=== PATIENT | male | born 1990 | race American Indian/Alaskan Native ===

== ENCOUNTER 2018-06-02 10:14 | Emergency (ER) | payer MEDICAID ==
--- NOTE | 2018-06-02 13:26 | Emergency Department Report ---
ED General Adult HPI - General Chief complaint: Medical Clearance Stated complaint: DIALYSIS Time Seen by Provider: 06/02/18 12:52 Source: patient Mode of arrival: Ambulatory Limitations: No Limitations - History of Present Illness Initial comments: Mr West is a 28 year-old man with ESRD who presents for his regular dialysis. He has been kicked out of [facility] for non-compliance. Has been floating around different ERs in order to get his dialysis. Was dialyzed at [facility] on Thursday. Has been doing well. Still makes urine. No chest pain, no shortness of breath, no back pain, no palpitations, no fevers. Has been unable to find a new big data [employer] lead. - Related Data Allergies Allergy/AdvReac Type Severity Reaction Status Date / Time No Known Allergies Allergy Unverified 06/02/18 11:10 ED Review of Systems ROS: Stated complaint: DIALYSIS Other details as noted in HPI Comment: All other systems reviewed and negative ED Past Medical Hx - Past Medical History Previous Medical History?: Yes Hx Renal Disease: Yes (Bartter Disease) - Surgical History Past Surgical History?: Yes Additional Surgical History: L. forearm AV graft, vas cath R. chest wall - Social History Smoking Status: Never Smoker ED Physical Exam - General Limitations: No Limitations General appearance: alert, in no apparent distress - Head Head exam: Present: atraumatic, normocephalic - Eye Eye exam: Present: normal appearance, EOMI - ENT ENT exam: Present: mucous membranes moist - Neck Neck exam: Present: normal inspection. Absent: tenderness, meningismus - Respiratory Respiratory exam: Present: normal lung sounds bilaterally. Absent: respiratory distress, wheezes - Cardiovascular Cardiovascular Exam: Present: regular rate, normal rhythm. Absent: systolic murmur, diastolic murmur, rubs, gallop - GI/Abdominal GI/Abdominal exam: Present: soft. Absent: distended, tenderness - Rectal Rectal exam: Present: deferred - Extremities Exam Extremities exam: Present: normal inspection, other (left forearm AVF with palpable thrill). Absent: tenderness - Back Exam Back exam: Present: normal inspection. Absent: tenderness - Neurological Exam Neurological exam: Present: alert, oriented X3 - Psychiatric Psychiatric exam: Present: normal affect, normal mood - Skin Skin exam: Present: warm, dry, intact, normal color. Absent: rash ED Course Vital Signs 07/18/18 11:06 Temperature 98.3 F Pulse Rate 79 Respiratory 16 Rate Blood Pressure 170/98 O2 Sat by Pulse 100 Oximetry ED Medical Decision Making - Lab Data Result diagrams: 06/02/18 14:21 06/02/18 14:21 Lab Results 06/02/18 06/02/18 Range/Units 14:21 14:21 WBC 4.3 L (4.5-11.0) K/mm3 RBC 4.18 (3.65-5.03) M/mm3 Hgb 10.6 L (11.8-15.2) gm/dl Hct 34.1 L (35.5-45.6) % MCV 82 L (84-94) fl MCH 25 L (28-32) pg MCHC 31 L (32-34) % RDW 16.5 H (13.2-15.2) % Plt Count 181 (140-440) K/mm3 Sodium 140 (137-145) mmol/L Potassium 4.1 (3.6-5.0) mmol/L Chloride 94.6 L (98-107) mmol/L Carbon Dioxide 23 (22-30) mmol/L Anion Gap 27 mmol/L BUN 66 H (9-20) mg/dL Creatinine 17.1 H (0.8-1.5) mg/dL Estimated GFR 4 ml/min BUN/Creatinine Ratio 4 % Glucose 87 (75-100) mg/dL Calcium 8.8 (8.4-10.2) mg/dL - Medical Decision Making mr west is a 28 year-old man who presents for routine dialysis. Was [facility] dialysis, but was kicked out of [facility] for non-compliance. Last dialyzed on Thursday at [facility]. Does not meet emergent dialysis standard. elevated BUN and Cr, but normal K, bicarb. elevated anion gap. no dyspnea. not volume overload. Spoke with dr. dotson, nephrology, who recommends referral to a new center. Had case management meet with him to help with referrals. Until he is able to get into new center, recommend returning to ED for evaluation. Given return precautions. Critical care attestation.: If time is entered above; I have spent that time in minutes in the direct care of this critically ill patient, excluding procedure time. ED Disposition Clinical Impression: ESRD (end stage renal disease) on dialysis Disposition: TO HOME OR SELFCARE Is pt being admited?: No Does the pt Need Aspirin: No Condition: Stable Instructions: Chronic Kidney Disease (ED), Hemodialysis (ED) Referrals: PRIMARY CARE,MD [Primary Care Provider] - 3-5 Days
[2018-06-02 14:36] LABS: Hematocrit 34.1 % (35.5-45.6); Hemoglobin 10.6 gm/dl (11.8-15.2); Mean Corpuscular HGB Conc 31 % (32-34); Mean Corpuscular Hemoglobin 25 pg (28-32); Mean Corpuscular Volume 82 fl (84-94); Platelet Count 181 K/mm3 (140-440); Red Blood Count 4.18 M/mm3 (3.65-5.03); Red Cell Distribution Width 16.5 % (13.2-15.2)
[2018-06-02 14:56] LABS: Calcium 8.8 mg/dL (8.4-10.2)
[2018-06-02 16:05] VITALS: BP 164/92
== END 2018-06-02 16:03 | disposition home or self-care (01) ==
LOC: ED 10:14
DX: N18.6 End stage renal disease (principal); Z99.2 Dependence on renal dialysis
CPT/HCPCS: 36415; 80048; 85027; 99283

== ENCOUNTER 2018-06-05 11:04 | Inpatient (IN) | payer MEDICAID ==
--- NOTE | 2018-06-05 12:14 | Emergency Department Report ---
Blank Doc - Documentation Documentation: Patient is 28 years old male history of end stage renal disease on hemodialysis. Patient is very noncompliant to his his dialysis. Patient does not have any seo coordinator or a dialysis Center he was recently kicked off the [facility] dialysis Center. Patient stated that last time he had dialysis was Thursday approximately 6 days ago. Patient is complaining of slight shortness of breath. He denied any nausea or vomiting. Blood pressure is slightly elevated. EKG, labs and x-ray ordered patient needed to be managed into our main ED.
[2018-06-05 13:19] LABS: Basophils % (Auto) 0.5 % (0.0-1.8); Eosinophils # (Auto) 0.1 K/mm3 (0.0-0.4); Eosinophils % (Auto) 2.9 % (0.0-4.3); Hematocrit 31.8 % (35.5-45.6); Lymphocytes # (Auto) 1.6 K/mm3 (1.2-5.4); Lymphocytes % (Auto) 35.4 % (13.4-35.0); Mean Corpuscular HGB Conc 32 % (32-34); Mean Corpuscular Volume 80 fl (84-94); Monocytes # (Auto) 0.3 K/mm3 (0.0-0.8); Monocytes % (Auto) 5.6 % (0.0-7.3); Platelet Count 169 K/mm3 (140-440); Red Blood Count 3.95 M/mm3 (3.65-5.03); Red Cell Distribution Width 16.4 % (13.2-15.2)
[2018-06-05 13:20] LABS: Mean Corpuscular Hemoglobin 25 pg (28-32)
--- NOTE | 2018-06-05 13:26 | XRay Report ---
FINAL REPORT EXAM: XR CHEST ROUTINE 2V HISTORY: SOB COMPARISON: None. TECHNIQUE: Frontal and lateral views of the chest. FINDINGS: The cardiomediastinal silhouette is normal in appearance. The lungs are clear without focal consolidation. There is no pleural effusion or pneumothorax. There is no acute soft tissue or osseous abnormality. IMPRESSION: No acute cardiopulmonary disease.
--- NOTE | 2018-06-05 13:54 | Emergency Department Report ---
ED General Adult HPI - General Chief complaint: Medical Clearance Stated complaint: DIALYSIS Time Seen by Provider: 06/05/18 11:57 Source: patient Mode of arrival: Ambulatory Limitations: No Limitations - History of Present Illness Initial comments: Patient is 28 years old male history of end stage renal disease on hemodialysis. Patient is very noncompliant to his his dialysis. Patient does not have any therapeutic specialist or a dialysis Center he was recently kicked off the [facility] dialysis Center. Patient stated that last time he had dialysis was Thursday approximately 6 days ago. Patient is complaining of slight shortness of breath. He denied any nausea or vomiting. Blood pressure is slightly elevated. - Related Data Allergies Allergy/AdvReac Type Severity Reaction Status Date / Time No Known Allergies Allergy Verified 06/05/18 11:32 ED Review of Systems ROS: Stated complaint: DIALYSIS Other details as noted in HPI Comment: All other systems reviewed and negative Constitutional: denies: chills, fever Respiratory: shortness of breath. denies: wheezing Cardiovascular: denies: chest pain Gastrointestinal: denies: abdominal pain, nausea, vomiting Neurological: denies: headache, weakness, numbness, paresthesias, confusion, abnormal gait ED Past Medical Hx - Past Medical History Hx Hypertension: Yes Hx Renal Disease: Yes (Bartter Disease) - Surgical History Additional Surgical History: L. forearm AV graft, vas cath R. chest wall - Social History Smoking Status: Never Smoker Substance Use Type: None ED Physical Exam - General Limitations: No Limitations General appearance: alert, in no apparent distress - Head Head exam: Present: atraumatic, normocephalic, normal inspection - ENT ENT exam: Present: normal exam, normal orophraynx, mucous membranes moist - Neck Neck exam: Present: normal inspection, full ROM. Absent: tenderness, meningismus, lymphadenopathy, thyromegaly - Respiratory Respiratory exam: Present: normal lung sounds bilaterally. Absent: respiratory distress, wheezes, rales, rhonchi, accessory muscle use, decreased breath sounds , prolonged expiratory - Cardiovascular Cardiovascular Exam: Present: regular rate, normal rhythm, normal heart sounds - GI/Abdominal GI/Abdominal exam: Present: soft, normal bowel sounds. Absent: distended, tenderness, guarding, rebound, rigid, organomegaly, mass, bruit, pulsatile mass , hernia - Extremities Exam Extremities exam: Present: normal inspection, full ROM, normal capillary refill. Absent: pedal edema, calf tenderness - Neurological Exam Neurological exam: Present: alert, oriented X3, CN II-XII intact, normal gait, reflexes normal - Skin Skin exam: Present: warm, intact, normal color ED Course Vital Signs 06/05/18 11:07 Temperature 98.3 F Pulse Rate 85 Respiratory 20 Rate Blood Pressure 173/100 O2 Sat by Pulse 100 Oximetry - Reevaluation(s) Reevaluation #1: 06/05/18 14:09 * I discussed the patient is Dr. Allison from nephrology, he stated that he will put dialysis orders ED Medical Decision Making - Lab Data Result diagrams: 06/05/18 12:29 06/05/18 12:29 - Radiology Data Radiology results: report reviewed Referring Physician: JUAN CARLOS FINN Patient Name: AIDAN CUEVAS Date of : 1990 Sex: Male Report Date: 2018-06-05 Report Status: [place] [address] XRay Report Signed Patient: AIDAN CUEVAS MR#: [id number] : 1990 Acct:[id number] Age/Sex: 28 / M ADM Date: 06/05/18 Loc: ED Attending Dr: Ordering Physician: JUAN CARLOS FINN Date of Service: 06/05/18 Procedure(s): XR chest routine 2V Accession Number(s): [id number] cc: JUAN CARLOS FINN Fluoro Time In Minutes: FINAL REPORT EXAM: XR CHEST ROUTINE 2V HISTORY: SOB COMPARISON: None. TECHNIQUE: Frontal and lateral views of the chest. FINDINGS: The cardiomediastinal silhouette is normal in appearance. The lungs are clear without focal consolidation. There is no pleural effusion or pneumothorax. There is no acute soft tissue or osseous abnormality. IMPRESSION: No acute cardiopulmonary disease. Transcribed By: ANAMARIA Dictated By: NURIS EUGENE MD Electronically Authenticated By: NURIS EUGENE MD Signed Date/Time: 06/05/18 132 DD/ 132 TD/TT: 06/05/18 132 Critical care attestation.: If time is entered above; I have spent that time in minutes in the direct care of this critically ill patient, excluding procedure time. ED Disposition Clinical Impression: ESRD (end stage renal disease) on dialysis, Volume overload Disposition: 09 OP ADMIT IP TO THIS HOSP Is pt being admited?: Yes Condition: Stable Referrals: PRIMARY CARE, [Primary Care Provider] - 3-5 Days
[2018-06-05] MEDS ORDERED: NACL 0.9% 100 ML IV PRN (14:08)
[2018-06-05 15:40] VITALS: BP 172/101
--- NOTE | 2018-06-05 16:32 | Event Note ---
Date: 06/05/18 Patient left AMA, unable to see him.
--- NOTE | 2018-06-05 23:16 | Event Note ---
Date: 06/05/18 Left AMA Dictated H/p---in reports ESRD on HD Missed HD Volume overload
== END 2018-06-05 15:40 | disposition left against medical advice (07) | DRG 640 ==
LOC: ED 11:04 → 3A 15:18
PROVIDERS: ADMIT Internal Medicine; ATTEND Internal Medicine
DX: E87.70 Fluid overload, unspecified (principal); N18.6 End stage renal disease; I12.0 Hypertensive chronic kidney disease with stage 5 chronic kidney disease or end stage renal disease; Z99.2 Dependence on renal dialysis; Z91.15 Patient's noncompliance with renal dialysis; Z53.21 Procedure and treatment not carried out due to patient leaving prior to being seen by health care provider
CPT/HCPCS: 36415; 71046; 80048; 85025